=== PATIENT | female | born 2000 | race Caucasian/White ===

== ENCOUNTER 2023-11-19 03:39 | Emergency (ER) | payer MEDICAID ==
[2023-11-19 04:22] LABS: BASOPHILS % (AUTO) 0.5 %; EOSINOPHILS # (AUTO) 0.1 10^3/uL (0.0-0.7); EOSINOPHILS % (AUTO) 1.3 %; HCT - HEMATOCRIT 38.4 % (37.0-47.0); HGB - HEMOGLOBIN 12.5 g/dL (12.0-16.0); LYMPHOCYTES # (AUTO) 2.7 10^3/uL (1.5-3.5); LYMPHOCYTES % (AUTO) 32.5 %; MEAN CORPUSCULAR HEMOGLOBIN 28.9 pg (27.0-31.0); MEAN CORPUSCULAR HGB CONC 32.6 g/dL (32.0-36.0); MEAN CORPUSCULAR VOLUME 88.9 fL (81.0-99.0); MEAN PLATELET VOLUME 9.9 fL (7.9-10.8); MONOCYTES % (AUTO) 11.4 %; NEUTROPHILS # (AUTO) 4.5 10^3/uL (1.5-6.6); NEUTROPHILS % (AUTO) 54.1 %; PLT - PLATELET COUNT 207 10^3/uL (130-450); RED BLOOD COUNT 4.32 10^6/uL (4.20-5.40); RED CELL DISTRIBUTION WIDTH 11.9 % (12.0-15.0); WHITE BLOOD COUNT 8.3 x10^3/uL (4.8-10.8)
[2023-11-19 04:39] LABS: ACETAMINOPHEN 8.2 ug/mL; ALBUMIN/GLOBULIN RATIO 1.5 (1.0-2.2); ALKALINE PHOSPHATASE 63 IU/L (42-121); ALT ALANINE AMINOTRANSFERASE 7 IU/L (10-60); AST ASPARTATE AMINOTRANSFERASE 11 IU/L (10-42); BILIRUBIN,TOTAL 0.2 mg/dL (0.2-1.0); BUN - BLOOD UREA NITROGEN 15 mg/dL (6-20); CALCIUM 9.3 mg/dL (8.5-10.3); CARBON DIOXIDE - CO2 23 mmol/L (21-32); CHLORIDE 108 mmol/L (101-111); CREATININE 0.9 mg/dL (0.6-1.3); ETOH - ETHANOL < 10.0 mg/dL; GFR - MDRD 79 (>89); GLUCOSE 96 mg/dL (74-104); LIPASE 18 U/L (11-82); POTASSIUM 3.5 mmol/L (3.5-4.5); SODIUM 138 mmol/L (135-145); TOTAL PROTEIN 6.7 g/dL (6.4-8.9)
[2023-11-19 04:40] LABS: SALICYLATE < 1.5 mg/dL
[2023-11-19 04:47] LABS: BILIRUBIN,URINE NEGATIVE (NEGATIVE); GLUCOSE, URINE (UA) NEGATIVE (NEGATIVE); HCG UR QUAL NEGATIVE; KETONES,URINE (UA) NEGATIVE (NEGATIVE); LEUKOCYTE ESTERASE, URINE NEGATIVE (NEGATIVE); NITRITE,URINE NEGATIVE (NEGATIVE); OCCULT BLOOD,URINE LARGE (NEGATIVE); PROTEIN,URINE NEGATIVE (NEGATIVE); UROBILINOGEN,URINE 0.2 (NORMAL) E.U./dL (NORMAL)
[2023-11-19 04:52] LABS: THYROID STIMULATING HORMONE 1.89 uIU/mL (0.34-5.60)
[2023-11-19 04:53] LABS: BACTERIA,URINE Moderate /HPF (None Seen); CLARITY,URINE HAZY (CLEAR); MUCUS,URINE Moderate Strands; SQUAMOUS EPITHELIAL CELL,UR MOD Squamous (<= Few); WBC,URINE 0-3 /HPF (0-5)
[2023-11-19 04:55] LABS: COCAINE SCREEN URINE NEGATIVE (NEGATIVE); METHAMPHETAMINES SCREEN, URINE NEGATIVE (NEGATIVE); OPIATE SCREEN, URINE NEGATIVE (NEGATIVE); THC CANNABINOID SCREEN, URINE POSITIVE (NEGATIVE)
[2023-11-19 04:56] LABS: AMPHETAMINE SCREEN,URINE NEGATIVE (NEGATIVE); BARBITURATE SCREEN,UR NEGATIVE (NEGATIVE); BENZODIAZEPINES SCREEN, URINE NEGATIVE (NEGATIVE); BUPRENORPHINE SCREEN, URINE NEGATIVE (NEGATIVE); METHADONE SCREEN, URINE NEGATIVE (NEGATIVE); OXYCODONE SCREEN, URINE NEGATIVE (NEGATIVE); TRICYCLIC ANTIDEPRESSANT,URINE NEGATIVE (NEGATIVE)
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
[2023-11-19] MEDS: ACETAMINOPHEN 500 MG TABLET PO STA (08:49)
[2023-11-19] MEDS: IBUPROFEN 800 MG TABLET PO STA (09:46)
[2023-11-19] MEDS ORDERED: OLANZapine ODT 5 MG TABLET TL ONE (12:26)
[2023-11-19] MEDS: OLANZapine ODT 5 MG TABLET TL STA (12:28)
--- NOTE | 2023-11-19 12:43 | ED Physician Documentation ---
ED Addendum - Addendum Addendum: 11/19/23 12:43 She was in the room for a bit with a crying and this agitated her. She was wanting to leave. She did voluntarily take some oral Zyprexa but the nurse is calling the DCR as she does not feel like the patient is voluntary anymore. 11/19/23 13:42 I thought she was going to need to be restrained and actually wrote orders for both chemical and violent restraint.. That said she was able to be verbally de- escalated pending DCR evaluation. 11/19/23 16:19 Subsequently she was seen by the DCR who cleared her for outpatient treatment and again by our social media editor who completed a safety plan. Telepsychiatric note reviewed recommendation for Abilify which is prescribed Disposition: Discharged home Condition: Stable Diagnosis: 1. Bipolar disorder
[2023-11-19 14:42] VITALS: BP 132/84; O2SAT 100
[2023-11-19] MEDS: KETAMINE 500 MG/10 ML VIAL IM STA (16:35)
[2023-11-19] MEDS: LORazepam 2 MG/ML VIAL IM STA (16:35)
== END 2023-11-19 16:37 | disposition home or self-care (01) ==
LOC: ED 03:39
DX: F31.9 Bipolar disorder, unspecified (principal); F17.200 Nicotine dependence, unspecified, uncomplicated
CPT/HCPCS: 36415; 80053; 80143; 80179; 80306; 81001; 81025; 82077; 83690; 84443; 85025; 87635; 90834; 99284; A9270; Q3014; 81003; 87086